=== PATIENT | female | born 1985 | race African-American/Black ===

== ENCOUNTER 2017-10-14 13:46 | Emergency (ER) | payer SELFPAY ==
[~2017-10-14] VITALS: Ht 157.5 cm; Wt 50.0 kg
[2017-10-14 13:48] VITALS: BP 136/83
== END 2017-10-14 18:42 | disposition left against medical advice (07) ==
LOC: ER 14:01
DX: R10.9 Unspecified abdominal pain (principal); R11.2 Nausea with vomiting, unspecified; R19.7 Diarrhea, unspecified

== ENCOUNTER 2021-08-29 08:41 | Emergency (ER) | payer MEDICAID ==
[~2021-08-29] VITALS: Ht 154.9 cm; Wt 45.0 kg
[2021-08-29] MEDS ORDERED: AMOXICILLIN/POTASSIUM CLAVULANATE 875/125MG TAB PO ONE (09:00)
[2021-08-29] MEDS ORDERED: AMOX-424 MT (10:20)
[2021-08-29] MEDS ORDERED: TOPUD MT (10:20)
[2021-08-29] MEDS ORDERED: IBUPROFEN 600MG TABLET PO ONE (10:45)
[2021-08-29 11:11] VITALS: BP 139/85
== END 2021-08-29 11:11 | disposition home or self-care (01) ==
LOC: ER 08:41
DX: K04.7 Periapical abscess without sinus (principal); H61.23 Impacted cerumen, bilateral; I10 Essential (primary) hypertension
CPT/HCPCS: 69210; 82542; 99281; 99283

== ENCOUNTER 2021-10-18 08:05 | Emergency (ER) | payer MEDICAID ==
[~2021-10-18] VITALS: Ht 165.1 cm; Wt 60.0 kg
[~2021-10-18 08:05] MED LIST: AMOX-424 MT; TOPUD MT
[2021-10-18] MEDS ORDERED: ONDANSETRON HCL 4MG/2ML INJ IV STA (08:23)
[2021-10-18] MEDS ORDERED: MORPHINE SULFATE 4 MG/ML CPJ (NOT FOR IM USE) IV STA (08:23)
[2021-10-18 10:02] LABS: BASOPHILS % 1.1 % (0.0-2.0); EOSINOPHILS % 0.2 % (0.0-5.0); HEMATOCRIT. 40.8 % (36.0-48.0); HEMOGLOBIN. 13.5 g/dL (12.0-16.0); MEAN CORPUSCULAR HEMOGLOBIN 30.8 pg (28.0-32.0); MEAN CORPUSCULAR VOLUME 93.2 fL (81.0-99.0); MEAN PLATELET VOLUME 9.8 fl (7.4-10.4); NEUTROPHILS % 65.7 % (40.0-76.0); PLATELET 137 x1000/uL (130-400); RED BLOOD CELL COUNT 4.38 mill/uL (4.2-5.4); RED CELL DISTRIBUTION WIDTH 13.5 % (11.6-14.6)
[2021-10-18 10:07] LABS: CHLORIDE 105 mEq/L (98-107)
[2021-10-18 10:40] VITALS: BP 106/64
[2021-10-18] MEDS ORDERED: ONDA4TAB5 PO (10:47)
[2021-10-18] MEDS ORDERED: TOPUD PO (10:47)
[2021-10-18] MEDS ORDERED: ASPIRIN 325MG EC TABLET PO ONE (11:00)
== END 2021-10-18 11:10 | disposition home or self-care (01) ==
LOC: ER 08:05
DX: U07.1 COVID-19 (principal); R11.2 Nausea with vomiting, unspecified
CPT/HCPCS: 36415; 80053; 83690; 85025; 96374; 96375; 99284; C9803; J2270; J2405; U0003; U0005